=== PATIENT | male | born 2000 | race Hispanic/Latino ===

== ENCOUNTER 2025-01-17 22:03 | Emergency (ER) | payer SELFPAY ==
[~2025-01-17] VITALS: Ht 172.7 cm; Wt 62.1 kg
--- NOTE | 2025-01-17 22:10 | ERN ---
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 The brand is [employer] paint thinner. It is a hydrocarbon based pain thinner. Immediately after realizing his mistake, patient had some water and then since then he has had a full meal and he comes in tonight just with complaints of a little bit of diffuse stomach pain and diarrhea x2. No other symptoms no respiratory symptoms no emesis no vomiting. Allergies: Coded Allergies: No Known Allergies (Unverified Allergy, Unknown, 01/17/25) Constitutional: (-) chills, (-) diaphoresis, (-) fever, (-) malaise, (-) weakness, (-) other documentation EENTM: (-) eye pain, (-) blurred vision, (-) tearing, (-) double vision, (-) ear pain, (-) ear discharge, (-) nose pain, (-) nose congestion, (-) throat pain, (-) Throat swelling, (-) mouth pain, (-) tooth pain, (-) mouth swelling, (-) other documentation Respiratory: (-) cough, (-) orthopnea, (-) short of breath, (-) stridor, (-) wheezing, (-) other documentation Cardiovascular: (-) chest pain, (-) edema, (-) palpitations, (-) syncope, (-) dyspnea on exertion, (-) other documentation Gastrointestinal/Abdominal: (+) diarrhea Genitourinary: (-) penile discharge, (-) dysuria, (-) frequency, (-) hematuria, (-) pain, (-) other documentation Musculoskeletal: (-) Neck pain, (-) back pain, (-) Flank Pain, (-) joint pain, (-) joint swelling, (-) muscle pain, (-) muscle stiffness, (-) gout, (-) other documentation Skin: (-) laceration, (-) contusion, (-) abrasion, (-) abscess, (-) rash, (-) change in color, (-) change in hair, (-) change in nails, (-) diaphoresis, (-) dryness, (-) other documentation Physical Exam General Appearance: (+) no apparent distress Orientation: (+) alert Head/Face Trauma: No Eye: bilateral eye normal inspection, bilateral eye PERRL, bilateral eye EOMI Ear, Nose, Throat: (+) hearing grossly normal, (+) normal ENT inspection, (+) normal pharynx Neck: (+) normal inspection, (+) supple Respiratory: (+) chest non-tender, (+) lungs clear Heart: (+) regular, (+) no gallop, (+) murmur Vascular: (+) no edema, (+) normal peripheral pulse Gastrointestinal: (+) soft, (+) non-tender MDM Patient is completely asymptomatic. I talked to poison control. In the absence of respiratory symptoms they said he would be fine. The hydrocarbon was a small amount it was a while ago and it would not have devastating impacts on the digestive tract. As the patient has a normal lung exam in his respiratory tract is fine he can be discharged home. Poison control report #[id number]. ED Course Vital Signs Date Time Temp Pulse Resp B/P (MAP) Pulse Ox O2 Delivery O2 Flow Rate FiO2 01/17/25 22:23 97.7 84 18 135/85 100 Room Air* 0 21 01/17/25 22:06 97.9 88 19 141/90 98 Room Air DX & DISP Disposition: Discharge Departure Impression: Primary Impression: Accidental hydrocarbon ingestion Condition: Stable Additional Instructions: Please return to the emergency room if you develop shortness of breath or worsening diarrhea nausea and vomiting and inability to maintain hydration or eat regular food. Otherwise you should be fine. Referrals: SELF,REFERRAL (PCP) MAXIME WOODWARD MD January 17, 2025 22:10
[2025-01-17 22:46] VITALS: BP 127/79; PULSE 80; RESP 18; TEMP 97.9; O2SAT 98
== END 2025-01-17 22:53 | disposition home or self-care (01) ==
LOC: EDH 22:03
DX: T58.11XA Toxic effect of carbon monoxide from utility gas, accidental (unintentional), initial encounter (principal); R10.84 Generalized abdominal pain; R19.7 Diarrhea, unspecified; Y92.89 Other specified places as the place of occurrence of the external cause
CPT/HCPCS: 99281